=== PATIENT | female | born 1975 | race Caucasian/White ===

== ENCOUNTER 2016-10-14 12:37 | Emergency (ER) | payer OTHER ==
[2016-10-14] MEDS ORDERED: DIAZEPAM 5 MG/ML 2 ML SYRINGE IVP STA (13:42)
[2016-10-14] MEDS ORDERED: MORPHINE SULFATE 4 MG/ML SYRINGE IVP STA (13:42)
[2016-10-14] MEDS ORDERED: KETOROLAC 30 MG/ML 1 ML VIAL IVP STA (13:42)
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
[2016-10-14 15:17] VITALS: BP 124/75; PULSE 84; RESP 16; TEMP 98
== END 2016-10-14 15:37 | disposition home or self-care (01) ==
LOC: EC 12:37
DX: M62.830 Muscle spasm of back (principal); M79.7 Fibromyalgia; F17.200 Nicotine dependence, unspecified, uncomplicated; Z79.51 Long term (current) use of inhaled steroids; Z79.899 Other long term (current) drug therapy; Z88.0 Allergy status to penicillin; Z88.8 Allergy status to other drugs, medicaments and biological substances; V87.7XXA Person injured in collision between other specified motor vehicles (traffic), initial encounter; Y92.410 Unspecified street and highway as the place of occurrence of the external cause
CPT/HCPCS: 72125; 70450; 99284; 96374; 96375 ×2; J2270; J3360; J1885

== ENCOUNTER → 2017-01-16 | Outpatient (CLI) | payer OTHER ==
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
== END | disposition home or self-care (01) ==
LOC: RADMRIMAIN 17:44
PROVIDERS: ATTEND Family Medicine
DX: M46.96 Unspecified inflammatory spondylopathy, lumbar region (principal); M47.812 Spondylosis without myelopathy or radiculopathy, cervical region; M43.8X2 Other specified deforming dorsopathies, cervical region; G89.29 Other chronic pain
CPT/HCPCS: 72141; 72148

== ENCOUNTER → 2017-02-05 | Outpatient (CLI) | payer OTHER | LOC: CPPFTMAIN 12:03 | PROVIDERS: ATTEND Family Medicine | DX: J45.40 Moderate persistent asthma, uncomplicated (principal) | CPT/HCPCS: 94060; 94726; 94729 ==

== ENCOUNTER → 2017-03-07 | Outpatient (CLI) | payer OTHER ==
[2017-03-07 16:15] LABS: Blood Urea Nitrogen 9 mg/dL (7-17); Non-African American GFR(MDRD) >60 (>60 ml/min/1.73 sqM)
--- NOTE | 2017-03-07 19:20 | CT ---
EXAMINATION TYPE: CT abdomen pelvis w con DATE OF EXAM: 03/07/2017 REFERENCE: Previous study dated 10/21/2013 HISTORY: R14.0 Abdominal Bloating, K59.00 Intermittent cons HISTORY: Intermittent constipation with lower abdominal pain x3 weeks. CT DLP: 602 mGy Automated exposure control for dose reduction was used. TECHNIQUE: Helical acquisition through the abdomen and pelvis was obtained following the oral ingesti on of with Oral Contrast and following intravenous administration of 100 mL of Omnipaque 300. The ailin a was reformatted in axial, coronal and sagittal projections. FINDINGS: There is minimal dependent atelectasis in the dependent portion of the right lung. Visuali zed portions of the lungs are otherwise clear. There is no pleural or pericardial fluid. The heart is not enlarged. Within the abdomen, the liver is prominent measuring 20 cm. This is largely due to a Jair's lobe. T he spleen is normal in size. The gallbladder is contracted. There is a 1.8 x 3.1 cm right adrenal mass. This has enlarged slightly from previous. Left adrenal gl and appears normal. Both kidneys demonstrate function and appear morphologically normal. The pancreas appears normal. There is no significant retroperitoneal, iliac or inguinal adenopathy. The bladder is unremarkable. The uterus is not visualized. The ovaries appear unremarkable. There is mucosal thickening involving the descending colon and distal transverse colon. There is feca l elevation of the distal ileum. This suggests slow transit. There is a small amount of free fluid in the pelvis. No free air is seen. No bony destructive lesion is seen. IMPRESSION: 1. MUCOSAL THICKENING INVOLVING THE DISTAL TRANSVERSE AND DESCENDING COLONS. PLEASE CORRELATE FOR COL ITIS. 2. SACRALIZATION OF THE DISTAL ILEUM SUGGESTING STASIS. 3. HEPATOMEGALY. 4. ENLARGING, 1.8 X 3.1 CM, RIGHT ADRENAL MASS.
== END | disposition home or self-care (01) ==
LOC: RADCTMAIN 15:26
PROVIDERS: ATTEND Family Medicine
DX: K63.89 Other specified diseases of intestine (principal); R16.0 Hepatomegaly, not elsewhere classified; E27.8 Other specified disorders of adrenal gland
CPT/HCPCS: 82565; 84520; 74177; 36415; Q9967

== ENCOUNTER → 2017-04-24 | Outpatient (CLI) | payer OTHER ==
[2017-04-24 16:17] LABS: Basophils # (A) 0.1 k/uL (0-0.2); Basophils % (A) 1 %; Eosinophils # (A) 0.1 k/uL (0-0.7); Eosinophils % (A) 1 %; HCT 45.1 % (34.0-46.0); HGB 14.9 gm/dL (11.4-16.0); Lymphocytes # (A) 2.9 k/uL (1.0-4.8); Lymphocytes % (A) 29 %; MCH 31.5 pg (25.0-35.0); MCV 95.5 fL (80.0-100.0); Mean Platelet Volume 7.6; Monocytes # (A) 0.4 k/uL (0-1.0); Monocytes % (A) 4 %; Neutrophils # (A) 6.6 k/uL (1.3-7.7); Neutrophils % (A) 65 %; Platelet Count 281 k/uL (150-450); RBC 4.73 m/uL (3.80-5.40); RDW 12.4 % (11.5-15.5); WBC 10.2 k/uL (3.8-10.6)
[2017-04-25 01:34] LABS: Immunoglobulin E 82.1 IU/mL (0.00-114.00)
[2017-04-26 11:51] LABS: Alt. alternata IgE Class CLASS 0; Alternaria alternata IgE <0.35 kU/L (<0.35); Asperg. fumagatus IgE <0.35 kU/L (<0.35); Asperg. fumagatus IgE Class CLASS 0; Bermuda Grass IgE <0.35 kU/L (<0.35); Birch(Com.Silvr) IgE <0.35 kU/L (<0.35); Birch(Com.Silvr) IgE Class CLASS 0; Cat Epith & Dander IgE <0.35 kU/L (<0.35); Cat Epith & Dander IgE Class CLASS 0; Clad herbarum IgE <0.35 kU/L (<0.35); Cockroach IgE <0.35 kU/L (<0.35); Cottonwood IgE <0.35 kU/L (<0.35); Dermato. Pteronyssinus IgE <0.35 kU/L (<0.35); Dermato. farinae IgE <0.35 kU/L (<0.35); Dermato. farinae IgE Class CLASS 0; Dog Dander IgE <0.35 kU/L (<0.35); Elm IgE <0.35 kU/L (<0.35); Maple (Box Elder) IgE <0.35 kU/L (<0.35); Maple (Box Elder) IgE Class CLASS 0; Mountain Cedar IgE <0.35 kU/L (<0.35); Mountain Cedar IgE Class CLASS 0; Mouse Urine IgE Class CLASS 0; Nettle IgE <0.35 kU/L (<0.35); Nettle IgE Class CLASS 0; Oak IgE <0.35 kU/L (<0.35); Penicillium notatum IgE Class CLASS 0; Rough Marshelder IgE <0.35 kU/L (<0.35); Rough Marshelder IgE Class CLASS 0; Timothy Grass IgE <0.35 kU/L (<0.35); White Ash IgE Class CLASS 0
[2017-04-26 12:41] LABS: Alpha 1 Anti-Trypsin 161 mg/dL (90 - 200)
[2017-04-28 23:02] LABS: Alternaria Alternata IgG 4.7 mcg/mL (< 13.6); Aspergillus fumigatus IgG Not detected (Not detected); Cladosporium herbarium IgG 26.8 mcg/mL (< 14.7); Phoma ssp. IgG 5.6 mcg/mL (< 6.6); Saccaharomospora viridis Not detected (Not detected); Saccaharopoly. rectivirgula Not detected (Not detected)
== END | disposition home or self-care (01) ==
LOC: LABWHC1 15:47
PROVIDERS: ATTEND Internal Medicine
DX: J06.9 Acute upper respiratory infection, unspecified (principal)
CPT/HCPCS: 36415; 82103; 82104; 82785; 85025; 86001; 86003; 86606; 86609; 87502

== ENCOUNTER 2017-05-07 15:03 | Emergency (ER) | payer OTHER ==
[2017-05-07] MEDS ORDERED: KETOROLAC 30 MG/ML 1 ML VIAL IVP STA (16:10)
[2017-05-07] MEDS ORDERED: ONDANSETRON 4 MG/2 ML VIAL IVP STA (16:10)
[2017-05-07] MEDS ORDERED: MORPHINE SULFATE 5 MG/ML SYRINGE IVP STA (16:10)
[2017-05-07] MEDS ORDERED: SODIUM CHLORIDE 0.9% 1,000 ML IV ONE (16:10)
[2017-05-07] MEDS ORDERED: ACETAMINOPHEN TAB 325 MG TAB PO STA (16:11)
[2017-05-07] MEDS ORDERED: RX INFO: IV CONTRAST WAS GIVEN 1 EACH MISC MISCELLANE PRN (16:11)
[2017-05-07 16:20] LABS: Basophils # (A) 0.1 k/uL (0-0.2); Basophils % (A) 1 %; Eosinophils # (A) 0.2 k/uL (0-0.7); Eosinophils % (A) 2 %; HCT 39.4 % (34.0-46.0); HGB 13.2 gm/dL (11.4-16.0); Lymphocytes # (A) 2.2 k/uL (1.0-4.8); Lymphocytes % (A) 26 %; MCH 31.4 pg (25.0-35.0); MCHC 33.5 g/dL (31.0-37.0); MCV 93.7 fL (80.0-100.0); Mean Platelet Volume 7.6; Monocytes # (A) 0.3 k/uL (0-1.0); Monocytes % (A) 4 %; Neutrophils # (A) 5.5 k/uL (1.3-7.7); Neutrophils % (A) 66 %; Platelet Count 298 k/uL (150-450); RDW 12.5 % (11.5-15.5); WBC 8.3 k/uL (3.8-10.6)
[2017-05-07 16:23] LABS: Appearance,Urine Cloudy (Clear); Bacteria,Urine Many /hpf; Bilirubin,Urine Negative (Negative); Blood,Urine Negative (Negative); Budding Yeast,Urine Few /hpf; Color,Urine Yellow; Glucose,Urine (UA) Negative (Negative); Hyaline Casts,Urine 2 /lpf (0-2); Ketones,Urine Negative (Negative); Leukocyte Esterase,Urine Large (Negative); Nitrite,Urine Positive (Negative); PH, Urine 6.5 (5.0-8.0); Protein,Urine Negative (Negative); RBC,Urine 3 /hpf (0-5); Specific Gravity,Urine 1.009 (1.001-1.035); Squamous Epithelial Cell,Urine 11 /hpf (0-4); Urobilinogen,Urine <2.0 mg/dL (<2.0); WBC,Urine 13 /hpf (0-5)
[2017-05-07 16:33] LABS: ALT 49 U/L (9-52); AST 21 U/L (14-36); Albumin 3.8 g/dL (3.5-5.0); Alkaline Phosphatase 73 U/L (38-126); Anion Gap 9 mmol/L; Blood Urea Nitrogen 8 mg/dL (7-17); C Reactive Protein 5.9 mg/L (<10.0); Calcium 8.9 mg/dL (8.4-10.2); Carbon Dioxide 26 mmol/L (22-30); Chloride 105 mmol/L (98-107); Glucose 96 mg/dL (74-99); Lipase 43 U/L (23-300); Potassium 4.2 mmol/L (3.5-5.1); Sodium 140 mmol/L (137-145); Total Bilirubin 0.2 mg/dL (0.2-1.3); Total Protein 6.3 g/dL (6.3-8.2)
--- NOTE | 2017-05-07 16:33 | ED ---
Abdominal Pain HPI - General Chief Complaint: Abdominal Pain Stated Complaint: right side abdominal pain Time Seen by Provider: 05/07/17 15:12 Source: patient Mode of arrival: ambulatory Limitations: no limitations - History of Present Illness Initial Comments: 41-year-old female with past medical history of fibromyalgia, diverticulitis, hysterectomy, tubal ligation, and uterine ablation presented for evaluation of abdominal pain since Saturday. She states that it acutely worsened Saturday and is worsened by food. She describes it as sharpness with associated bloating and nausea. Pain is to her right abdomen and radiates around to her back. She discussed her current symptoms with Dr. Underwood who requested that she come to the ED for further treatment and evaluation. She also has an appointment with Dr. Danielle on 05/16. - Related Data Home Medications Medication Instructions Recorded Confirmed Albuterol Sulfate [Ventolin HFA] 2 puff INHALATION RT-Q6H PRN 09/06/13 05/07/17 Atorvastatin Calcium [Lipitor] 40 mg PO HS 05/07/17 05/07/17 Ergocalciferol (Vitamin D2) 50,000 unit PO FR 05/07/17 05/07/17 [Vitamin D2] FLUoxetine HCL [PROzac] 40 mg PO DAILY 05/07/17 05/07/17 Fluticasone/Salmeterol 1 puff INHALATION RT-BID 05/07/17 05/07/17 [Fluticasone-Salmeterol 55-14] Ibuprofen [Motrin] 800 mg PO BID 05/07/17 05/07/17 Montelukast [Singulair] 10 mg PO HS 05/07/17 05/07/17 Pregabalin [Lyrica] 100 mg PO BID 05/07/17 05/07/17 Varenicline [Chantix] 1 mg PO BID 05/07/17 05/07/17 busPIRone HCl [Buspar] 5 mg PO BID 05/07/17 05/07/17 Previous Rx's Medication Instructions Recorded HYDROcodone/APAP 5-325MG [[place] 1 - 2 tab PO Q6HR PRN #7 tab 05/07/17 5-325] Sulfamethox-Tmp 800-160Mg [Bactrim 1 tab PO Q12HR #27 tab 05/07/17 DS 800-160 mg] Allergies Allergy/AdvReac Type Severity Reaction Status Date / Time Penicillins Allergy Unknown Verified 05/07/17 15:43 Childhood terbinafine Allergy Rash/Hives Verified 05/07/17 15:43 Review of Systems ROS Statement: Those systems with pertinent positive or pertinent negative responses have been documented in the HPI. ROS Other: All systems not noted in ROS Statement are negative. Constitutional: Denies: fever, chills, night sweats Eyes: Denies: eye pain, eye discharge ENT: Denies: ear pain, throat pain Respiratory: Denies: cough, dyspnea Cardiovascular: Denies: chest pain, palpitations Endocrine: Denies: fatigue, polydipsia, polyuria Gastrointestinal: Reports: abdominal pain, nausea, other (Abdominal bloating). Denies: vomiting, diarrhea, constipation Genitourinary: Denies: urgency, dysuria, frequency, hematuria Musculoskeletal: Denies: back pain, arthralgia, myalgia Skin: Denies: rash, lesions Neurological: Denies: headache, weakness Psychiatric: Denies: anxiety, depression Hematological/Lymphatic: Denies: easy bleeding, easy bruising Past Medical History Past Medical History: Fibromyalgia, Musculoskeletal Disorder Additional Past Medical History / Comment(s): diverticulitis History of Any Multi-Drug Resistant Organisms: None Reported Past Surgical History: Hysterectomy, Orthopedic Surgery, Tubal Ligation, Uterine Ablation Past Psychological History: Anxiety, Depression, PTSD Smoking Status: Former smoker Past Alcohol Use History: Occasional Past Drug Use History: Marijuana - Past Family History Father Additional Family Medical History / Comment(s): dad bilpolar. kids ADHD General Exam Limitations: no limitations General appearance: alert, in distress (Mild) Head exam: Present: atraumatic, normocephalic, normal inspection Eye exam: Present: normal appearance, PERRL, EOMI. Absent: scleral icterus, conjunctival injection ENT exam: Present: normal exam, normal oropharynx, mucous membranes moist Neck exam: Present: normal inspection. Absent: tenderness, meningismus, lymphadenopathy Respiratory exam: Present: normal lung sounds bilaterally. Absent: respiratory distress, wheezes, rales, rhonchi, stridor Cardiovascular Exam: Present: normal rhythm, tachycardia GI/Abdominal exam: Present: soft, tenderness. Absent: distended, guarding, rebound, rigid Rectal exam: Present: deferred Extremities exam: Present: normal inspection, full ROM, normal capillary refill. Absent: tenderness, pedal edema, joint swelling, calf tenderness Back exam: Present: normal inspection Neurological exam: Present: alert, oriented X3, CN II-XII intact Psychiatric exam: Present: normal affect, normal mood Skin exam: Present: warm, dry, intact, normal color. Absent: rash Course Vital Signs 05/07/17 05/07/17 15:05 17:47 Temperature 100.8 F H 98.4 F Pulse Rate 113 H 85 Respiratory 18 16 Rate Blood Pressure 133/100 135/72 O2 Sat by Pulse 96 100 Oximetry Medical Decision Making - Medical Decision Making 41-year-old female with past medical history as noted above presented for evaluation of right-sided abdominal pain that radiates around to her right flank and right back. His ago examination she appears to be in mild distress and is holding her right side. Tenderness to palpation to the right side without peritoneal signs of guarding, rigidity, rebound. She states her abdomen is bloated from her baseline. She states similar symptoms in the past however she is unsure what the diagnosis was at that time. Concern for appendicitis versus colitis versus bowel traction and will obtain CT abdomen and pelvis, labs, and provide symptom management. Urinalysis significant for urinary tract infection. CT abdomen and pelvis shows a stable low density right adrenal mass consistent with benign etiology. No sign of acute abdomen and pelvis area there is some mild left-sided colonic diverticulosis without diverticulitis. There is no adverse change compared to old exam. Given her UTI with right-sided flank pain concern for pyelonephritis. The patient was given her first dose of Bactrim here in the ED. On reevaluation she had improvement in her symptoms pretty was informed of all results and through shared decision making it was determined that she be discharged with instructions to follow-up with primary care physician but to return to this facility if his symptoms should worsen or persist. The patient allergen understanding of all this information and agreed with the plan of care. - Lab Data Result diagrams: 05/07/17 16:00 05/07/17 16:00 Lab Results 05/07/17 05/07/17 05/07/17 Range/Units 16:00 16:00 16:00 WBC 8.3 (3.8-10.6) k/uL RBC 4.20 (3.80-5.40) m/uL Hgb 13.2 (11.4-16.0) gm/dL Hct 39.4 (34.0-46.0) % MCV 93.7 (80.0-100.0) fL MCH 31.4 (25.0-35.0) pg MCHC 33.5 (31.0-37.0) g/dL RDW 12.5 (11.5-15.5) % Plt Count 298 (150-450) k/uL Neutrophils % 66 % Lymphocytes % 26 % Monocytes % 4 % Eosinophils % 2 % Basophils % 1 % Neutrophils # 5.5 (1.3-7.7) k/uL Lymphocytes # 2.2 (1.0-4.8) k/uL Monocytes # 0.3 (0-1.0) k/uL Eosinophils # 0.2 (0-0.7) k/uL Basophils # 0.1 (0-0.2) k/uL Sodium 140 (137-145) mmol/L Potassium 4.2 (3.5-5.1) mmol/L Chloride 105 (98-107) mmol/L Carbon Dioxide 26 (22-30) mmol/L Anion Gap 9 mmol/L BUN 8 (7-17) mg/dL Creatinine 1.00 (0.52-1.04) mg/dL Est GFR (MDRD) Af Amer >60 (>60 ml/min/1.73 sqM) Est GFR (MDRD) Non-Af >60 (>60 ml/min/1.73 sqM) Glucose 96 (74-99) mg/dL Plasma Lactic Acid [place] 1.5 (0.7-2.0) mmol/L Calcium 8.9 (8.4-10.2) mg/dL Total Bilirubin 0.2 (0.2-1.3) mg/dL AST 21 (14-36) U/L ALT 49 (9-52) U/L Alkaline Phosphatase 73 (38-126) U/L C-Reactive Protein 5.9 (<10.0) mg/L Total Protein 6.3 (6.3-8.2) g/dL Albumin 3.8 (3.5-5.0) g/dL Lipase 43 (23-300) U/L Urine Color Urine Appearance (Clear) Urine pH (5.0-8.0) Ur Specific [place] (1.001-1.035) Urine Protein (Negative) Urine Glucose (UA) (Negative) Urine Ketones (Negative) Urine Blood (Negative) Urine Nitrite (Negative) Urine Bilirubin (Negative) Urine Urobilinogen (<2.0) mg/dL Ur Leukocyte Esterase (Negative) Urine RBC (0-5) /hpf Urine WBC (0-5) /hpf Ur Squamous Epith Cells (0-4) /hpf Urine Bacteria (None) /hpf Hyaline Casts (0-2) /lpf Urine Yeast (Budding) (None) /hpf 05/07/17 Range/Units 16:00 WBC (3.8-10.6) k/uL RBC (3.80-5.40) m/uL Hgb (11.4-16.0) gm/dL Hct (34.0-46.0) % MCV (80.0-100.0) fL MCH (25.0-35.0) pg MCHC (31.0-37.0) g/dL RDW (11.5-15.5) % Plt Count (150-450) k/uL Neutrophils % % Lymphocytes % % Monocytes % % Eosinophils % % Basophils % % Neutrophils # (1.3-7.7) k/uL Lymphocytes # (1.0-4.8) k/uL Monocytes # (0-1.0) k/uL Eosinophils # (0-0.7) k/uL Basophils # (0-0.2) k/uL Sodium (137-145) mmol/L Potassium (3.5-5.1) mmol/L Chloride (98-107) mmol/L Carbon Dioxide (22-30) mmol/L Anion Gap mmol/L BUN (7-17) mg/dL Creatinine (0.52-1.04) mg/dL Est GFR (MDRD) Af Amer (>60 ml/min/1.73 sqM) Est GFR (MDRD) Non-Af (>60 ml/min/1.73 sqM) Glucose (74-99) mg/dL Plasma Lactic Acid [place] (0.7-2.0) mmol/L Calcium (8.4-10.2) mg/dL Total Bilirubin (0.2-1.3) mg/dL AST (14-36) U/L ALT (9-52) U/L Alkaline Phosphatase (38-126) U/L C-Reactive Protein (<10.0) mg/L Total Protein (6.3-8.2) g/dL Albumin (3.5-5.0) g/dL Lipase (23-300) U/L Urine Color Yellow Urine Appearance Cloudy H (Clear) Urine pH 6.5 (5.0-8.0) Ur Specific [place] 1.009 (1.001-1.035) Urine Protein Negative (Negative) Urine Glucose (UA) Negative (Negative) Urine Ketones Negative (Negative) Urine Blood Negative (Negative) Urine Nitrite Positive H (Negative) Urine Bilirubin Negative (Negative) Urine Urobilinogen <2.0 (<2.0) mg/dL Ur Leukocyte Esterase Large H (Negative) Urine RBC 3 (0-5) /hpf Urine WBC 13 H (0-5) /hpf Ur Squamous Epith Cells 11 H (0-4) /hpf Urine Bacteria Many H (None) /hpf Hyaline Casts 2 (0-2) /lpf Urine Yeast (Budding) Few H (None) /hpf Disposition Clinical Impression: Pyelonephritis Disposition: HOME SELF-CARE Condition: Stable Instructions: Kidney Infection (ED) Additional Instructions: Please use medication as discussed. Please follow up with family doctor if symptoms have not improved over the next two days. Please return to the emergency room if your symptoms increase or worsen or for any other concerns. Prescriptions: HYDROcodone/APAP 5-325MG [[place] 5-325] 1 - 2 tab PO Q6HR PRN #7 tab PRN Reason: Analgesia Sulfamethox-Tmp 800-160Mg [Bactrim DS 800-160 mg] 1 tab PO Q12HR #27 tab Referrals: Mary Hernández MD [Primary Care Provider] - 1-2 days Time of Disposition: 18:09
--- NOTE | 2017-05-07 17:23 | CT ---
EXAMINATION TYPE: CT abdomen pelvis w con DATE OF EXAM: 05/07/2017 COMPARISON: 03/07/2017 and 10/21/2013 HISTORY: Right sided abdominal pain CT DLP: 1350 mGycm Automated exposure control for dose reduction was used. TECHNIQUE: Helical acquisition of images was performed from the lung bases through the pelvis. CONTRAST: Performed without Oral Contrast and with IV Contrast, patient injected with 100 mL of Omnipaque 300. FINDINGS: Lung bases are clear of consolidation. There is no pleural effusion. There is minimal subsegmental at electasis at the right posterior lung base. Liver spleen pancreas gallbladder appear normal. Bile ducts are not dilated. There is a oval-shaped 3 x 1.5 cm low-density mass on the right adrenal gland. The kidneys Show satisfactory contrast opacifi cation. There is no hydronephrosis. There is no retroperitoneal adenopathy. Appendix appears normal. There is no ascites. Bladder distends smoothly. There is no evidence of a pelvic mass. The bony struc tures appear intact. Bladder distends smoothly. I see no intestinal wall thickening. There are no dil ated loops. IMPRESSION: STABLE LOW-DENSITY RIGHT ADRENAL MASS CONSISTENT WITH BENIGN ETIOLOGY. NO SIGN OF ACUTE ABDOMEN AND P BASILIO. THERE IS SOME MILD LEFT-SIDED COLONIC DIVERTICULOSIS WITHOUT DIVERTICULITIS. NO ADVERSE CHANGE COMPARED TO OLD EXAM. There is new minimal subsegmental atelectasis at the right posterior lung base .
[2017-05-07 17:47] VITALS: BP 135/72; PULSE 85; RESP 16; TEMP 98.4
[2017-05-07] MEDS ORDERED: SULFAMETHOX-TMP 800-160MG 1 EACH TAB PO STA (18:07)
== END 2017-05-07 18:26 | disposition home or self-care (01) ==
LOC: EC 15:03
DX: N12 Tubulo-interstitial nephritis, not specified as acute or chronic (principal); K57.30 Diverticulosis of large intestine without perforation or abscess without bleeding; M79.7 Fibromyalgia; F41.9 Anxiety disorder, unspecified; F32.9 Major depressive disorder, single episode, unspecified; F43.10 Post-traumatic stress disorder, unspecified; Z87.891 Personal history of nicotine dependence; Z90.710 Acquired absence of both cervix and uterus; Z98.51 Tubal ligation status; Z98.890 Other specified postprocedural states; Z79.1 Long term (current) use of non-steroidal anti-inflammatories (NSAID); Z79.51 Long term (current) use of inhaled steroids; Z79.899 Other long term (current) drug therapy; Z88.0 Allergy status to penicillin; Z88.1 Allergy status to other antibiotic agents
CPT/HCPCS: 36415; 80053; 83605; 83690; 85025; 86140; 81001; 87086; 74177; 99284; 96374; 96375 ×2; 96361; J2405; J1885; Q9967; J2274; 87077; 87186

== ENCOUNTER 2017-07-28 13:17 | Emergency (ER) | payer OTHER ==
[2017-07-28] MEDS ORDERED: SODIUM CHLORIDE 0.9% 1,000 ML IV STA ×2 (13:48)
[2017-07-28] MEDS ORDERED: ACETAMINOPHEN TAB 500 MG TAB PO STA (13:49)
--- NOTE | 2017-07-28 13:53 | ED ---
General Adult HPI - General Chief complaint: Chest Pain Stated complaint: chest pain Time Seen by Provider: 07/28/17 13:39 Source: patient, RN notes reviewed Mode of arrival: wheelchair Limitations: no limitations - History of Present Illness Initial comments: Patient is a pleasant 41-year-old female presenting to the emergency Department with complaints of chest discomfort. Onset of symptoms was 3 or 4 days ago. Symptoms have been fairly steady. Patient does states symptoms are positional. It does hurt to take a deep breath. No cough. No dyspnea. No upper respiratory symptoms. Patient is denies fever symptoms at home. Patient does complain of headache. Patient states headache is fairly chronic for her however usually has not lasted this long. No history of previous chest discomfort. - Related Data Home Medications Medication Instructions Recorded Confirmed Albuterol Sulfate [Ventolin HFA] 2 puff INHALATION RT-Q6H PRN 09/06/13 05/07/17 Atorvastatin Calcium [Lipitor] 40 mg PO HS 05/07/17 05/07/17 Ergocalciferol (Vitamin D2) 50,000 unit PO FR 05/07/17 05/07/17 [Vitamin D2] FLUoxetine HCL [PROzac] 40 mg PO DAILY 05/07/17 05/07/17 Fluticasone/Salmeterol 1 puff INHALATION RT-BID 05/07/17 05/07/17 [Fluticasone-Salmeterol 55-14] Ibuprofen [Motrin] 800 mg PO BID 05/07/17 05/07/17 Montelukast [Singulair] 10 mg PO HS 05/07/17 05/07/17 Pregabalin [Lyrica] 100 mg PO BID 05/07/17 05/07/17 Varenicline [Chantix] 1 mg PO BID 05/07/17 05/07/17 busPIRone HCl [Buspar] 5 mg PO BID 05/07/17 05/07/17 Previous Rx's Medication Instructions Recorded HYDROcodone/APAP 5-325MG [[place] 1 - 2 tab PO Q6HR PRN #7 tab 05/07/17 5-325] Sulfamethox-Tmp 800-160Mg [Bactrim 1 tab PO Q12HR #27 tab 05/07/17 DS 800-160 mg] Allergies Allergy/AdvReac Type Severity Reaction Status Date / Time Penicillins Allergy Unknown Verified 07/28/17 13:21 Childhood sulfamethoxazole Allergy Unknown Verified 07/28/17 13:21 [From Bactrim] terbinafine Allergy Rash/Hives Verified 07/28/17 13:21 trimethoprim [From Bactrim] Allergy Unknown Verified 07/28/17 13:21 Review of Systems ROS Statement: Those systems with pertinent positive or pertinent negative responses have been documented in the HPI. ROS Other: All systems not noted in ROS Statement are negative. Constitutional: Denies: fever, chills Eyes: Denies: eye pain ENT: Denies: ear pain Respiratory: Denies: cough, dyspnea Cardiovascular: Reports: chest pain. Denies: palpitations Endocrine: Reports: fatigue Gastrointestinal: Denies: abdominal pain Genitourinary: Denies: dysuria Musculoskeletal: Denies: back pain Skin: Denies: rash Neurological: Reports: headache Past Medical History Past Medical History: Fibromyalgia, Musculoskeletal Disorder Additional Past Medical History / Comment(s): diverticulitis History of Any Multi-Drug Resistant Organisms: None Reported Past Surgical History: Hysterectomy, Orthopedic Surgery, Tubal Ligation, Uterine Ablation Past Psychological History: Anxiety, Depression, PTSD Smoking Status: Former smoker Past Alcohol Use History: Occasional Past Drug Use History: Marijuana - Past Family History Father Additional Family Medical History / Comment(s): dad bilpolar. kids ADHD General Exam Limitations: no limitations General appearance: alert, in no apparent distress Head exam: Present: atraumatic Eye exam: Present: normal appearance, PERRL ENT exam: Present: normal oropharynx Neck exam: Present: normal inspection. Absent: meningismus Respiratory exam: Present: normal lung sounds bilaterally, chest wall tenderness Cardiovascular Exam: Present: regular rate, normal rhythm Expanded Peripheral pulses: 2+: Radial (R), Radial (L), Posterior Tibialis (R), Posterior Tibialis (L) GI/Abdominal exam: Present: soft. Absent: distended, tenderness Extremities exam: Present: normal inspection. Absent: pedal edema, calf tenderness Neurological exam: Present: alert, CN II-XII intact. Absent: motor sensory deficit Expanded Motor strength exam: RUE: 5, LUE: 5, RLE: 5, LLE: 5 Psychiatric exam: Present: normal affect, normal mood Skin exam: Present: normal color Course Vital Signs 07/28/17 07/28/17 13:19 15:00 Temperature 99.2 F 98.8 F Pulse Rate 102 H 83 Respiratory 18 18 Rate Blood Pressure 139/72 134/86 O2 Sat by Pulse 96 96 Oximetry EKG Findings - EKG Comments: EKG Findings:: Normal sinus rhythm 85. HI 114. QRS 92. QT 386. QTc 459. Normal axis. Normal QRS. No acute ST change. Medical Decision Making - Medical Decision Making Patient reevaluated and unchanged. Patient family updated on results and plan. Case was discussed in detail with Dr. Wilson, who will admit for Dr. garcia - Lab Data Result diagrams: 07/28/17 13:40 07/28/17 13:40 Lab Results 07/28/17 07/28/17 07/28/17 Range/Units 13:40 13:40 13:40 WBC 6.9 (3.8-10.6) k/uL RBC 4.08 (3.80-5.40) m/uL Hgb 12.7 (11.4-16.0) gm/dL Hct 37.2 (34.0-46.0) % MCV 91.2 (80.0-100.0) fL MCH 31.2 (25.0-35.0) pg MCHC 34.2 (31.0-37.0) g/dL RDW 12.9 (11.5-15.5) % Plt Count 278 (150-450) k/uL Neutrophils % 63 % Lymphocytes % 30 % Monocytes % 5 % Eosinophils % 1 % Basophils % 0 % Neutrophils # 4.4 (1.3-7.7) k/uL Lymphocytes # 2.0 (1.0-4.8) k/uL Monocytes # 0.3 (0-1.0) k/uL Eosinophils # 0.1 (0-0.7) k/uL Basophils # 0.0 (0-0.2) k/uL PT (9.0-12.0) sec INR (<1.2) APTT (22.0-30.0) sec D-Dimer (<0.60) mg/L FEU Sodium 138 (137-145) mmol/L Potassium 3.9 (3.5-5.1) mmol/L Chloride 103 (98-107) mmol/L Carbon Dioxide 23 (22-30) mmol/L Anion Gap 12 mmol/L BUN 12 (7-17) mg/dL Creatinine 0.77 (0.52-1.04) mg/dL Est GFR (CKD-EPI)AfAm >90 (>60 ml/min/1.73 sqM) Est GFR (CKD-EPI)NonAf >90 (>60 ml/min/1.73 sqM) Glucose 101 H (74-99) mg/dL Plasma Lactic Acid Taurus (0.7-2.0) mmol/L Calcium 9.2 (8.4-10.2) mg/dL Magnesium 1.8 (1.6-2.3) mg/dL Total Bilirubin 0.2 (0.2-1.3) mg/dL AST 17 (14-36) U/L ALT 32 (9-52) U/L Alkaline Phosphatase 76 (38-126) U/L Total Creatine Kinase 63 (30-135) U/L CK-MB (CK-2) 0.3 (0.0-2.4) ng/mL CK-MB (CK-2) Rel Index 0.5 Troponin I <0.012 (0.000-0.034) ng/mL Total Protein 6.6 (6.3-8.2) g/dL Albumin 4.0 (3.5-5.0) g/dL Amylase 43 (30-110) U/L Lipase 68 (23-300) U/L Influenza Type A RNA (Not Detectd) Influenza Type B (PCR) (Not Detectd) 07/28/17 07/28/17 07/28/17 Range/Units 13:40 13:55 13:55 WBC (3.8-10.6) k/uL RBC (3.80-5.40) m/uL Hgb (11.4-16.0) gm/dL Hct (34.0-46.0) % MCV (80.0-100.0) fL MCH (25.0-35.0) pg MCHC (31.0-37.0) g/dL RDW (11.5-15.5) % Plt Count (150-450) k/uL Neutrophils % % Lymphocytes % % Monocytes % % Eosinophils % % Basophils % % Neutrophils # (1.3-7.7) k/uL Lymphocytes # (1.0-4.8) k/uL Monocytes # (0-1.0) k/uL Eosinophils # (0-0.7) k/uL Basophils # (0-0.2) k/uL PT 9.9 (9.0-12.0) sec INR 1.0 (<1.2) APTT 23.1 (22.0-30.0) sec D-Dimer 0.22 (<0.60) mg/L FEU Sodium (137-145) mmol/L Potassium (3.5-5.1) mmol/L Chloride (98-107) mmol/L Carbon Dioxide (22-30) mmol/L Anion Gap mmol/L BUN (7-17) mg/dL Creatinine (0.52-1.04) mg/dL Est GFR (CKD-EPI)AfAm (>60 ml/min/1.73 sqM) Est GFR (CKD-EPI)NonAf (>60 ml/min/1.73 sqM) Glucose (74-99) mg/dL Plasma Lactic Acid Taurus 0.8 (0.7-2.0) mmol/L Calcium (8.4-10.2) mg/dL Magnesium (1.6-2.3) mg/dL Total Bilirubin (0.2-1.3) mg/dL AST (14-36) U/L ALT (9-52) U/L Alkaline Phosphatase (38-126) U/L Total Creatine Kinase (30-135) U/L CK-MB (CK-2) (0.0-2.4) ng/mL CK-MB (CK-2) Rel Index Troponin I (0.000-0.034) ng/mL Total Protein (6.3-8.2) g/dL Albumin (3.5-5.0) g/dL Amylase (30-110) U/L Lipase (23-300) U/L Influenza Type A RNA Not Detected (Not Detectd) Influenza Type B (PCR) Not Detected (Not Detectd) - Radiology Data Radiology results: image reviewed (Chest x-ray shows no acute process) Disposition Clinical Impression: Chest pain Disposition: ADMITTED IP TO THIS [facility] Referrals: Mary Hernández MD [Primary Care Provider] - 1-2 days Decision Time: 15:32
[2017-07-28 13:58] LABS: Basophils % (A) 0 %; Eosinophils # (A) 0.1 k/uL (0-0.7); Eosinophils % (A) 1 %; HCT 37.2 % (34.0-46.0); HGB 12.7 gm/dL (11.4-16.0); Lymphocytes % (A) 30 %; MCH 31.2 pg (25.0-35.0); MCHC 34.2 g/dL (31.0-37.0); MCV 91.2 fL (80.0-100.0); Mean Platelet Volume 7.6; Monocytes # (A) 0.3 k/uL (0-1.0); Monocytes % (A) 5 %; Neutrophils # (A) 4.4 k/uL (1.3-7.7); Neutrophils % (A) 63 %; Platelet Count 278 k/uL (150-450); RBC 4.08 m/uL (3.80-5.40); RDW 12.9 % (11.5-15.5); WBC 6.9 k/uL (3.8-10.6)
[2017-07-28 14:06] LABS: ALT 32 U/L (9-52); AST 17 U/L (14-36); Alkaline Phosphatase 76 U/L (38-126); Amylase 43 U/L (30-110); Anion Gap 12 mmol/L; Blood Urea Nitrogen 12 mg/dL (7-17); Calcium 9.2 mg/dL (8.4-10.2); Carbon Dioxide 23 mmol/L (22-30); Chloride 103 mmol/L (98-107); Glucose 101 mg/dL (74-99); Lipase 68 U/L (23-300); Magnesium 1.8 mg/dL (1.6-2.3); Potassium 3.9 mmol/L (3.5-5.1); Sodium 138 mmol/L (137-145); Total Bilirubin 0.2 mg/dL (0.2-1.3); Total Protein 6.6 g/dL (6.3-8.2)
[2017-07-28 14:11] LABS: D-Dimer 0.22 mg/L FEU (<0.60); Partial Thromboplastin Time 23.1 sec (22.0-30.0); Prothrombin Time 9.9 sec (9.0-12.0)
--- NOTE | 2017-07-28 14:16 | XR ---
EXAMINATION TYPE: XR chest 2V DATE OF EXAM: 07/28/2017 COMPARISON: NONE INDICATION: Chest pain deep breathing headache TECHNIQUE: Frontal and lateral views of the chest are obtained. FINDINGS: The heart size is normal. The pulmonary vasculature is normal. The lungs are clear. IMPRESSION: 1. No acute pulmonary process.
[2017-07-28 14:17] LABS: Creatine Kinase 63 U/L (30-135)
[2017-07-28 14:30] LABS: Creatine Kinase MB 0.3 ng/mL (0.0-2.4); Troponin I <0.012 ng/mL (0.000-0.034)
[2017-07-28] MEDS ORDERED: MORPHINE SULFATE 4MG/4ML SYRG IVP STA (15:31)
[2017-07-28] MEDS ORDERED: NITROGLYCERIN SL TABS 0.4 MG TAB SUBLINGUAL PRN (15:32)
[2017-07-28] MEDS ORDERED: ASPIRIN 81 MG PO STA (15:32)
[2017-07-28] MEDS ORDERED: KETOROLAC 30 MG/ML 1 ML VIAL IVP PRN (17:43)
[2017-07-28] MEDS ORDERED: NITROGLYCERIN OINT 1 INCH/GM PACKET TOPICAL SCH (18:00)
--- NOTE | 2017-07-28 18:16 | P.HPIM ---
History of Present Illness 41-year-old female presenting to the emergency Department with complaints of chest discomfort. Onset of symptoms was 3 or 4 days ago. Symptoms have been fairly steady. Patient does states symptoms are positional. No cough. No dyspnea. No upper respiratory symptoms. Patient is denies fever symptoms at home. Patient does complain of headache. Patient states headache is fairly chronic for her however usually has not lasted this long. No history of previous chest discomfort. Patient chest pain is musculoskeletal reproducible about a 9/10 in severity patient is complaining of severe headache because of the Nitropatch received. Patient had one set of troponin that was negative, patient's EKG did not show any significant ST-T wave changes. We'll repeat another set of troponin and EKG if that's negative patient will be discharged to follow up with her pain management physician. Patient pain starts in the neck radiates to the front of the chest patient has some tenderness in the paraspinal area in the cervical and thoracic area and is significantly reproducible chest pain in the parasternal area. Patient's d-dimer is negative patient chest pain is nonpleuritic in nature not associated with food mostly increases with chest wall movement. Denied any diaphoresis associated that Review of Systems REVIEW OF SYSTEMS: CONSTITUTIONAL: No fever, no malaise, no fatigue. HEENT: No recent visual problems or hearing problems. Denied any sore throat. CARDIOVASCULAR: No orthopnea, PND, no palpitations, no syncope. PULMONARY: No shortness of breath, no cough, no hemoptysis. GASTROINTESTINAL: No diarrhea, no nausea, no vomiting, no abdominal pain. Normoactive bowel sounds. NEUROLOGICAL: No headaches, no weakness, no numbness. HEMATOLOGICAL: Denies any bleeding or petechiae. GENITOURINARY: Denies any burning micturition, frequency, or urgency. MUSCULOSKELETAL/RHEUMATOLOGICAL: Denies any joint pain, swelling, or any muscle pain. Chest pain as mentioned above ENDOCRINE: Denies any polyuria or polydipsia. The rest of the 14-point review of systems is negative. Past Medical History Past Medical History: Fibromyalgia, Musculoskeletal Disorder Additional Past Medical History / Comment(s): diverticulitis History of Any Multi-Drug Resistant Organisms: None Reported Past Surgical History: Hysterectomy, Orthopedic Surgery, Tubal Ligation, Uterine Ablation Past Psychological History: Anxiety, Depression, PTSD Smoking Status: Former smoker Past Alcohol Use History: Occasional Past Drug Use History: Marijuana - Past Family History Father Additional Family Medical History / Comment(s): dad bilpolar. kids ADHD Medications and Allergies Home Medications Medication Instructions Recorded Confirmed Type Albuterol Sulfate [Ventolin HFA] 2 puff INHALATION RT-Q6H PRN 09/06/13 07/28/17 History Atorvastatin Calcium [Lipitor] 40 mg PO HS 05/07/17 07/28/17 History FLUoxetine HCL [PROzac] 40 mg PO DAILY 05/07/17 07/28/17 History Fluticasone/Salmeterol 1 puff INHALATION RT-BID 05/07/17 07/28/17 History [Fluticasone-Salmeterol 55-14] Montelukast [Singulair] 10 mg PO HS 05/07/17 07/28/17 History Pregabalin [Lyrica] 100 mg PO BID 05/07/17 07/28/17 History Varenicline [Chantix] 1 mg PO BID 05/07/17 07/28/17 History busPIRone HCl [Buspar] 5 mg PO BID 05/07/17 07/28/17 History Dicyclomine [Bentyl] 20 mg PO QID PRN 07/28/17 07/28/17 History Ibuprofen [Motrin] 600 mg PO TID PRN 07/28/17 07/28/17 History Omeprazole 40 mg PO DAILY 07/28/17 07/28/17 History Allergies Allergy/AdvReac Type Severity Reaction Status Date / Time Penicillins Allergy Unknown Verified 07/28/17 15:48 Childhood sulfamethoxazole Allergy Unknown Verified 07/28/17 15:48 [From Bactrim] terbinafine Allergy Rash/Hives Verified 07/28/17 15:48 trimethoprim [From Bactrim] Allergy Unknown Verified 07/28/17 15:48 Physical Exam Vitals: Vital Signs Temp Pulse Resp BP Pulse Ox 07/28/17 18:00 83 20 127/75 98 07/28/17 16:00 85 20 126/72 98 07/28/17 15:00 98.8 F 83 18 134/86 96 07/28/17 13:19 99.2 F 102 H 18 139/72 96 Intake and Output 07/28/17 07/28/17 07/28/17 06:59 14:59 22:59 Other: Weight 77.111 kg PHYSICAL EXAMINATION: GENERAL: The patient is alert and oriented x3, not in any acute distress. Well developed, well nourished. HEENT: Pupils are round and equally reacting to light. EOMI. No scleral icterus. No conjunctival pallor. Normocephalic, atraumatic. No pharyngeal erythema. No thyromegaly. CARDIOVASCULAR: S1 and S2 present. No murmurs, rubs, or gallops. Reproducible chest pain PULMONARY: Chest is clear to auscultation, no wheezing or crackles. ABDOMEN: Soft, nontender, nondistended, normoactive bowel sounds. No palpable organomegaly. MUSCULOSKELETAL: No joint swelling or deformity. EXTREMITIES: No cyanosis, clubbing, or pedal edema. NEUROLOGICAL: Gross neurological examination did not reveal any focal deficits. Paraspinal tenderness SKIN: No rashes. Results CBC & Chem 7: 07/28/17 13:40 07/28/17 13:40 Labs: Abnormal Lab Results - Last 24 Hours (Table) 07/28/17 Range/Units 13:40 Glucose 101 H (74-99) mg/dL Assessment and Plan Plan: -Chest pain we'll rule out acute causes syndromes. If patient negative troponin and EKG are negative patient will be discharged patient has musculoskeletal chest pain the patient's headache is secondary to nitro patch. 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 Patient has an appointment tomorrow morning. Patient did get outpatient stress test. 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
[2017-07-28 20:11] LABS: Creatine Kinase 60 U/L (30-135)
[2017-07-28 20:16] LABS: Creatine Kinase MB 0.4 ng/mL (0.0-2.4)
[2017-07-28 20:31] LABS: Troponin I <0.012 ng/mL (0.000-0.034)
[2017-07-28 20:58] VITALS: BP 135/82; PULSE 88; RESP 18; TEMP 97.8
[2017-07-29] MEDS ORDERED: ASPIRIN 325 MG TAB PO SCH (09:00)
== END 2017-07-28 20:50 | disposition other institution (70) ==
LOC: EC 13:17 → 3OBS 15:32 → UNDOADMOB 15:32 → EC 20:50
DX: R07.89 Other chest pain (principal); R51 Headache; R53.83 Other fatigue; F32.9 Major depressive disorder, single episode, unspecified; F41.9 Anxiety disorder, unspecified; F43.10 Post-traumatic stress disorder, unspecified; M79.7 Fibromyalgia; Z88.0 Allergy status to penicillin; Z88.1 Allergy status to other antibiotic agents; Z88.2 Allergy status to sulfonamides; Z88.8 Allergy status to other drugs, medicaments and biological substances; Z79.1 Long term (current) use of non-steroidal anti-inflammatories (NSAID); Z79.51 Long term (current) use of inhaled steroids; Z79.899 Other long term (current) drug therapy; Z87.891 Personal history of nicotine dependence
CPT/HCPCS: 99285; 96374; 96375; 96361 ×7; 36415; 93005; 85379; 80053; 82150; 82550; 82553; 83605; 83690; 83735; 84484; 85025; 85610; 85730; 87040; 87502; 71046; J1885; J2270

== ENCOUNTER → 2017-08-02 | Outpatient (CLI) | payer OTHER ==
[2017-08-02 14:35] LABS: Basophils % (A) 0 %; Eosinophils # (A) 0.1 k/uL (0-0.7); Eosinophils % (A) 2 %; HCT 36.7 % (34.0-46.0); HGB 12.3 gm/dL (11.4-16.0); Lymphocytes # (A) 2.5 k/uL (1.0-4.8); Lymphocytes % (A) 36 %; MCH 31.2 pg (25.0-35.0); MCHC 33.4 g/dL (31.0-37.0); MCV 93.3 fL (80.0-100.0); Mean Platelet Volume 7.8; Monocytes # (A) 0.4 k/uL (0-1.0); Monocytes % (A) 5 %; Neutrophils # (A) 3.8 k/uL (1.3-7.7); Neutrophils % (A) 56 %; Platelet Count 275 k/uL (150-450); RBC 3.93 m/uL (3.80-5.40); RDW 13.1 % (11.5-15.5); WBC 6.9 k/uL (3.8-10.6)
[2017-08-02 14:58] LABS: ALT 22 U/L (9-52); AST 17 U/L (14-36); Albumin 3.9 g/dL (3.5-5.0); Alkaline Phosphatase 75 U/L (38-126); Anion Gap 13 mmol/L; Blood Urea Nitrogen 13 mg/dL (7-17); C Reactive Protein <5.0 mg/L (<10.0); Calcium 8.8 mg/dL (8.4-10.2); Carbon Dioxide 23 mmol/L (22-30); Chloride 105 mmol/L (98-107); Glucose 94 mg/dL (74-99); Potassium 4.6 mmol/L (3.5-5.1); Sodium 141 mmol/L (137-145); Total Bilirubin 0.1 mg/dL (0.2-1.3); Total Protein 6.5 g/dL (6.3-8.2); Uric Acid 5.4 mg/dL (3.7-7.4)
[2017-08-02 15:11] LABS: T4, Free (Free Thyroxine) 0.68 ng/dL (0.78-2.19)
[2017-08-02 17:09] LABS: Erythrocyte Sedimentation Rate 9 mm/hr (0-20)
[2017-08-02 19:29] LABS: Vitamin D 25 Hydroxy 23.2 ng/mL (30.0-100.0)
[2017-08-02 19:39] LABS: Rheumatoid Factor <4 IU/mL (0-15)
== END | disposition home or self-care (01) ==
LOC: LABWHC1 13:36
PROVIDERS: ATTEND Physician Assistant
DX: M13.0 Polyarthritis, unspecified (principal); E27.9 Disorder of adrenal gland, unspecified; E55.9 Vitamin D deficiency, unspecified; M10.9 Gout, unspecified
CPT/HCPCS: 36415; 80053; 82306; 84439; 84443; 84481; 84550; 85025; 85652; 86038; 86140; 86431

== ENCOUNTER → 2017-08-02 | Outpatient (CLI) | payer OTHER ==
--- NOTE | 2017-08-02 15:01 | US ---
EXAMINATION TYPE: US carotid duplex BILAT DATE OF EXAM: 08/02/2017 COMPARISON: NONE CLINICAL HISTORY: SYNCOPE R55. No HTN, high cholesterol, headaches, dizzy, forgetful EXAM MEASUREMENTS: RIGHT: Peak Systolic Velocity (PSV) cm/sec ----- Right CCA: 94.2 ----- Right ICA: 81.4 ----- Right ECA: 71.5 ICA/CCA ratio: 0.9 RIGHT: End Diastole cm/sec ----- Right CCA: 34.9 ----- Right ICA: 32.9 ----- Right ECA: 15.3 LEFT: Peak Systolic Velocity (PSV) cm/sec ----- Left CCA: 107.0 ----- Left ICA: 84.4 ----- Left ECA: 55.3 ICA/CCA ratio: 0.8 LEFT: End Diastole cm/sec ----- Left CCA: 37.1 ----- Left ICA: 44.7 ----- Left ECA: 12.5 VERTEBRALS (direction of flow): Right Vertebral: Antegrade Left Vertebral: Antegrade Rhythm: No significant stenosis, elevated velocities, plaque or wall thickening seen IMPRESSION: No evidence for hemodynamically significant stenosis. Criteria for Assigning % of Stenosis / Diameter reduction (Estimation based on the indirect measurements of the internal carotid artery velocities (ICA PSV). 1. Normal (no stenosis)=ICA PSV < 125 cm/s: ratio < 2.0: ICA EDV<40 cm/s. 2. Less than 50% stenosis=ICA PSV < 125 cm/s: ratio < 2.0: ICA EDV<40 cm/s. 3. 50 to 69% stenosis=ICA PSV of 125 to 230 cm/s: ration 2.0 ? 4.0: ICA EDV 40-100 cm/s. 4. Greater than 70% stenosis to near occlusion= ICA PSV > 230 cm/s: ratio > 4.0: ICA EDV > 100 cm/s. 5. Near occlusion= ICA PSV velocities may be low or undetectable: variable ratio and ICA EDV. 6. Total occlusion=unable to detect flow.
== END | disposition home or self-care (01) ==
LOC: RADUSWWP 13:45
PROVIDERS: ATTEND Psychiatry & Neurology Neurology
DX: R55 Syncope and collapse (principal)
CPT/HCPCS: 93880

== ENCOUNTER → 2017-08-12 | Outpatient (CLI) | payer OTHER ==
--- NOTE | 2017-08-13 00:19 | MR ---
EXAMINATION TYPE: MR angio head wo con DATE OF EXAM: 08/12/2017 COMPARISON: NONE HISTORY: Migraines, dizziness, lt sided hearing loss TECHNIQUE: Time of flight images focusing on the [place] were performed without contrast. FINDINGS: There is arterial flow in the anterior middle and posterior cerebral arteries. There is art erial flow in the vertebrobasilar artery system. There is no mass effect. There is no evidence of spa sm. I see no aneurysm or neovascularity. There is a diminutive right side posterior communicating art mariah. I see no evidence of focal stenosis. There is arterial flow in the distal internal carotid arter ies bilaterally. IMPRESSION: Normal MR angiogram of the brain.
--- NOTE | 2017-08-13 00:29 | MR ---
EXAMINATION TYPE: MR brain wo con DATE OF EXAM: 08/12/2017 COMPARISON: 11/10/2013 HISTORY: Migraines, dizziness, lt sided hearing loss Standard multiplanar, multisequence MRI departmental protocol Multiplanar, multisequence images of the brain were acquired. Diffusion weighted imaging was performe d. FINDINGS: Ventricles and sulci appear normal. There is no mass effect nor midline shift. There is no sign of intracranial hemorrhage. Brainstem appears intact. Sella turcica appears normal. There are sc attered tiny white matter high signal foci on the FLAIR images at the regalado-white matter junction of b oth cerebral hemispheres. Total numbers less than 10 and these measure only 2 to 3 mm.. There is no s ign of cerebral edema. Corpus callosum appears normal. IMPRESSION: Tiny white matter high signal foci are subcortical and probably due to microvascular isch emia. There is no change compared to old exam. No evidence of any new lesions. I do not see a cause f or left-sided hearing loss.
== END ==
LOC: RADMRIMAIN 19:51
PROVIDERS: ATTEND Psychiatry & Neurology Neurology
DX: R90.82 White matter disease, unspecified (principal); R51 Headache; R42 Dizziness and giddiness
CPT/HCPCS: 70544; 70551

== ENCOUNTER → 2017-09-06 | Outpatient (CLI) | payer OTHER ==
[2017-09-10 09:59] LABS: Cotinine <2.0 ng/mL (<2.0); Nicotine <2.0 ng/mL (<2.0)
== END ==
LOC: LABWHC1 12:56
PROVIDERS: ATTEND Internal Medicine
DX: F17.200 Nicotine dependence, unspecified, uncomplicated (principal)
CPT/HCPCS: 36415; G0480; 80323

== ENCOUNTER → 2017-09-17 | Outpatient (CLI) | payer OTHER ==
--- NOTE | 2017-09-17 15:31 | CT ---
EXAMINATION TYPE: CT abdomen wo/w con DATE OF EXAM: 09/17/2017 HISTORY: Known adrenal mass CT DLP: 907mGycm Automated Exposure Control for Dose Reduction was Utilized. CONTRAST: CT scan of the abdomen is performed without oral and without and with IV Contrast, patient injected w ith 100 mL of Isovue 300. Adrenal gland protocol. COMPARISON: CT abdomen and pelvis May 07, 2017 and older studies FINDINGS: LUNG BASES: Posterior right basilar linear atelectasis is present. LIVER/GB: There are few low dense lesions scattered throughout the liver, largest measures 1.3 cm jus t posterior to the portal vein axial image 36, this is unchanged from September 07, 2013 CT in size and hannah s presumed benign. PANCREAS: No significant abnormality is seen. SPLEEN: No significant abnormality is seen. ADRENALS: There is persistent right adrenal mass measuring 2.5 x 1.6 cm axial image 22 series 3. Mass is not significantly changed in size from oldest CT August 19, 2013. Hounsfield units average -5 on noncontrast study. Postcontrast shows heterogeneous enhancement to 42 Hounsfield units with delayed w ashout to 14 Hounsfield units. Findings are greater than 50% washout in Hounsfield units less than 10 on noncontrast study as well as stability since 2013 are consistent with benign lipid rich adenoma. Left adrenal gland is felt within normal limits. KIDNEYS: No significant abnormality is seen. BOWEL: Normal-appearing appendix from cecum is seen. A few diverticula are seen in the left and visua lized sigmoid colon. LYMPH NODES: No greater than 1cm abdominal lymph nodes are appreciated. OSSEOUS STRUCTURES: No significant abnormality is seen. OTHER: No significant additional abnormality is seen. IMPRESSION: Stable right adrenal mass with imaging characteristics consistent with benign lipid rich adenoma.
== END | disposition home or self-care (01) ==
LOC: RADCTMAIN 12:48
PROVIDERS: ATTEND Internal Medicine Hematology & Oncology
DX: E27.8 Other specified disorders of adrenal gland (principal); R10.9 Unspecified abdominal pain
CPT/HCPCS: 74170; Q9967

== ENCOUNTER 2018-06-23 10:02 | Day surgery (SDC) | payer OTHER ==
[2018-06-19 11:00] VITALS: BMI 25.0
[~2018-06-23 10:02] MED LIST: LACTATED RINGERS 1,000 ML IV SCH; LIDOCAINE 1% 20 ML VIAL (10MG/ML) FOR IV START INTRADERMA PRN
[2018-06-23 10:30] VITALS: RESP 16; TEMP 97.4
[2018-06-23] MEDS ORDERED: LIDOCAINE 1% 20 ML VIAL (10MG/ML) FOR IV START INTRADERMA ONE (10:34)
[2018-06-23] MEDS ORDERED: PROPOFOL 10 MG/ML 20 ML VIAL IV ONE (11:31)
--- NOTE | 2018-06-23 12:16 | P.PCN ---
Date of Procedure: 06/23/18 Procedure(s) Performed: Procedure: 1. Esophagogastroduodenoscopy and biopsy. 2. Colonoscopy and biopsy. Preoperative diagnosis: Chronic reflux symptoms and change in bowel habits. Postoperative diagnosis: 1. Hiatal hernia with no evidence of esophagitis or complicated reflux disease. 2. Mild antral gastritis. 3. Biopsies obtained from the duodenum, antrum and esophagus. 4. Sigmoid diverticulosis with no evidence of acute diverticulitis or strictures. 5. No polyps or tumors. 6. Biopsies obtained from the right colon. Preparation: HalfLytely prep. Sedation: Was provided by anesthesia. Brief clinical history: The patient is a 42-year-old female who was evaluated in the office regarding chronic reflux and change in bowel habits. She had a prior colonoscopy but no prior upper endoscopy. This evaluation is to assess for complicated reflux disease, neoplasia or other pathology. Procedure: With the patient on her left lateral decubitus position and after informed consent and adequate sedation, I passed the Olympus-GIF H190 video upper endoscope through the cricopharyngeus down the esophagus. GE junction was around 38 cm from the incisors and there was a small sliding hiatal hernia but no obvious esophagitis or complicated reflux disease. The endoscope was then passed into the stomach which was insufflated with air and inspected in detail including the retroflex view in the cardia. There was some mottling and erythema in the antrum but no ulcers or erosions. Pyloric channel, duodenal bulb, post bulbar area and descending duodenum appeared within normal limits. I obtained multiple biopsies from the duodenum, antrum and esophagus then the endoscope was withdrawn and I proceeded to perform the colonoscopy. Perianal area did not show any fissures or fistulas. There were no masses felt on digital rectal examination. The Olympus CFH 190L video colonoscope was then inserted in the rectum in the usual fashion and advanced to the cecum. There were several diverticular orifices seen scattered in the sigmoid but I saw no evidence of acute diverticulitis or strictures. The mucosa appeared healthy. No polyps or tumors were seen. Because of her bowel changes, I obtained biopsies from the right colon then the endoscope was withdrawn. The patient tolerated the procedure well. Plan: The patient was reassured. Will await biopsy results and make further plans. I will keep you updated on her progress.
[2018-06-23 12:46] VITALS: BP 120/82; PULSE 80
== END 2018-06-23 12:58 | disposition home or self-care (01) ==
LOC: ORWHC2ENDO 10:02
DX: K21.9 Gastro-esophageal reflux disease without esophagitis (principal); R19.4 Change in bowel habit; K29.50 Unspecified chronic gastritis without bleeding; K44.9 Diaphragmatic hernia without obstruction or gangrene; K57.30 Diverticulosis of large intestine without perforation or abscess without bleeding; J45.909 Unspecified asthma, uncomplicated; M79.7 Fibromyalgia; F17.200 Nicotine dependence, unspecified, uncomplicated; Z88.1 Allergy status to other antibiotic agents; Z88.0 Allergy status to penicillin; Z79.899 Other long term (current) drug therapy
CPT/HCPCS: 88305; 88312; 45380; 43239; J2704

== ENCOUNTER → 2018-11-26 | Outpatient (CLI) | payer OTHER ==
[2018-11-26 19:28] LABS: African American GFR (CKD) 91.4 (60.0-200.0); BUN/Creat Ratio 8.89 Ratio (12.00-20.00); Calcium 9.1 mg/dL (8.7-10.3); Potassium 4.5 mmol/L (3.5-5.5); Vitamin D 25 Hydroxy 31.5 ng/mL (30.0-100.0)
== END | disposition home or self-care (01) ==
LOC: LABWHC1 13:17
PROVIDERS: ATTEND Nurse Practitioner Family
DX: E55.9 Vitamin D deficiency, unspecified (principal); E27.9 Disorder of adrenal gland, unspecified
CPT/HCPCS: 36415; 80048; 82306; 83970

== ENCOUNTER → 2018-12-01 | Outpatient (CLI) | payer OTHER ==
--- NOTE | 2018-12-02 10:22 | MM ---
Reason for exam: screening (asymptomatic). Last mammogram was performed 1 year and 8 months ago. History: Family history of breast cancer in maternal aunt and breast cancer in maternal cousin. Physical Findings: A clinical breast exam by your physician is recommended on an annual basis and results should be correlated with mammographic findings. MG Screening Mammo w CAD Bilateral CC and MLO view(s) were taken. Prior study comparison: March 28, 2017, bilateral MG screening mammo w CAD. June 09, 2012, mammogram, performed at [facility]. The breast tissue is heterogeneously dense. This may lower the sensitivity of mammography. No suspicious abnormality. No significant changes when compared with prior studies. ASSESSMENT: Negative, BI-RAD 1 RECOMMENDATION: Routine screening mammogram of both breasts in 1 year.
== END | disposition home or self-care (01) ==
LOC: RADMAMWWP 12:07
PROVIDERS: ATTEND Family Medicine
DX: Z12.31 Encounter for screening mammogram for malignant neoplasm of breast (principal)
CPT/HCPCS: 77067

== ENCOUNTER → 2018-12-04 | Outpatient (CLI) | payer OTHER ==
[2018-12-04 10:58] LABS: INR 0.9 (<1.2)
[2018-12-04 10:59] LABS: Partial Thromboplastin Time 25.5 sec (22.0-30.0); Prothrombin Time 9.6 sec (9.0-12.0)
[2018-12-04 11:06] LABS: Basophils # (A) 0.1 k/uL (0-0.2); Basophils % (A) 1 %; Eosinophils # (A) 0.2 k/uL (0-0.7); Eosinophils % (A) 2 %; HCT 42.7 % (34.0-46.0); Lymphocytes # (A) 2.6 k/uL (1.0-4.8); Lymphocytes % (A) 32 %; MCHC 32.8 g/dL (31.0-37.0); MCV 94.5 fL (80.0-100.0); Mean Platelet Volume 8.2; Monocytes # (A) 0.4 k/uL (0-1.0); Monocytes % (A) 5 %; Neutrophils # (A) 4.9 k/uL (1.3-7.7); Neutrophils % (A) 59 %; Platelet Count 264 k/uL (150-450); RBC 4.52 m/uL (3.80-5.40); RDW 14.1 % (11.5-15.5); WBC 8.3 k/uL (3.8-10.6)
[2018-12-04 11:12] LABS: Appearance,Urine Clear (Clear); Bacteria,Urine Occasional /hpf; Bilirubin,Urine Negative (Negative); Blood,Urine Negative (Negative); Color,Urine Light Yellow; Glucose,Urine (UA) Negative (Negative); Ketones,Urine Negative (Negative); Leukocyte Esterase,Urine Moderate (Negative); Nitrite,Urine Negative (Negative); PH, Urine 6.5 (5.0-8.0); Protein,Urine Negative (Negative); RBC,Urine 1 /hpf (0-5); Specific Gravity,Urine 1.004 (1.001-1.035); Squamous Epithelial Cell,Urine 3 /hpf (0-4); Urobilinogen,Urine <2.0 mg/dL (<2.0); WBC,Urine 2 /hpf (0-5)
[2018-12-04 16:04] LABS: African American GFR (CKD) 105.4 (60.0-200.0); Albumin 4.1 g/dL (3.80-4.90); Albumin/Globulin Ratio 2.05 (1.60-3.17); Anion Gap 5.5 mmol/L (4.00-12.00); Calcium 8.6 mg/dL (8.7-10.3); Carbon Dioxide 27.5 mmol/L (21.6-31.8); Potassium 4.3 mmol/L (3.5-5.5); Total Bilirubin 0.2 mg/dL (0.3-1.2); Total Protein 6.1 g/dL (6.2-8.2)
== END | disposition home or self-care (01) ==
LOC: LABWHC1 09:58
PROVIDERS: ATTEND Neurological Surgery
DX: Z01.812 Encounter for preprocedural laboratory examination (principal); M50.121 Cervical disc disorder at C4-C5 level with radiculopathy
CPT/HCPCS: 36415; 80053; 81001; 85025; 85610; 85730; 87070; 87086

== ENCOUNTER → 2019-02-07 | Outpatient (CLI) | payer OTHER ==
--- NOTE | 2019-02-07 17:23 | XR ---
EXAMINATION TYPE: XR cervical spine w flex/ext DATE OF EXAM: 02/07/2019 COMPARISON: 06/12/2013 HISTORY: Fusion surgery TECHNIQUE: 7 views including flexion-extension lateral views FINDINGS: There is a plate with screws fusing anteriorly the cervical spine at C4-5. There is moderat e narrowing of C3-4 disc space. There is narrowing of C5-6 and C6-7 disc spaces. Flexion-extension vi ews show no sign of instability. There are no cervical ribs. There is uncovertebral spurring and neur al foraminal impingement bilaterally at C5-6 and C6-7. IMPRESSION: No evidence of instability. Postsurgical changes. No fracture. Spondylosis as above with neural foraminal narrowing in the lower cervical spine. There is progression of neural foraminal narr owing compared to old exam.
== END | disposition home or self-care (01) ==
LOC: RADXRMAIN 12:50
PROVIDERS: ATTEND Neurological Surgery
DX: M48.02 Spinal stenosis, cervical region (principal); Z98.1 Arthrodesis status
CPT/HCPCS: 72052

== ENCOUNTER → 2019-03-11 | Outpatient (CLI) | payer OTHER ==
--- NOTE | 2019-03-12 07:04 | US ---
EXAMINATION TYPE: US carotid duplex BILAT DATE OF EXAM: 03/11/2019 COMPARISON: US CLINICAL HISTORY: H93.8X2 Pounding noise in ear. Pt states hearing her heart beat in left ear EXAM MEASUREMENTS: RIGHT: Peak Systolic Velocity (PSV) cm/sec ----- Right CCA: 81.1 ----- Right ICA: 76.5 ----- Right ECA: 88.8 ICA/CCA ratio: 0.9 RIGHT: End Diastole cm/sec ----- Right CCA: 27.1 ----- Right ICA: 38.1 ----- Right ECA: 24.9 LEFT: Peak Systolic Velocity (PSV) cm/sec ----- Left CCA: 91.2 ----- Left ICA: 67.7 ----- Left ECA: 74.3 ICA/CCA ratio: 0.7 LEFT: End Diastole cm/sec ----- Left CCA: 26.9 ----- Left ICA: 35.4 ----- Left ECA: 19.6 VERTEBRALS (direction of flow): Right Vertebral: Antegrade Left Vertebral: Antegrade Rhythm: Normal No significant stenosis seen IMPRESSION: No evidence for hemodynamically significant stenosis. Criteria for Assigning % of Stenosis / Diameter reduction (Estimation based on the indirect measurements of the internal carotid artery velocities (ICA PSV). 1. Normal (no stenosis)=ICA PSV < 125 cm/s: ratio < 2.0: ICA EDV<40 cm/s. 2. Less than 50% stenosis=ICA PSV < 125 cm/s: ratio < 2.0: ICA EDV<40 cm/s. 3. 50 to 69% stenosis=ICA PSV of 125 to 230 cm/s: ration 2.0 ? 4.0: ICA EDV 40-100 cm/s. 4. Greater than 70% stenosis to near occlusion= ICA PSV > 230 cm/s: ratio > 4.0: ICA EDV > 100 cm/s. 5. Near occlusion= ICA PSV velocities may be low or undetectable: variable ratio and ICA EDV. 6. Total occlusion=unable to detect flow.
== END | disposition home or self-care (01) ==
LOC: RADUSWWP 16:09
PROVIDERS: ATTEND Family Medicine
DX: H93.8X2 Other specified disorders of left ear (principal)
CPT/HCPCS: 93880

== ENCOUNTER → 2019-06-23 | Outpatient (CLI) | payer OTHER ==
--- NOTE | 2019-06-23 23:51 | CONS ---
CONSULTATION REASON FOR CONSULTATION: Sleep apnea/narcolepsy HISTORY OF PRESENT ILLNESS: This is a 43-year-old female patient, claims that she has had a sleep evaluation through us back in 2008. We were unable to find any records on her in our Sleep Center. In any rate, the patient was diagnosed having narcolepsy through a sleep center in [place] back in 2007. At that time, she was given Provigil. After moving back to [place], Provigil was not covered by insurance and this was dropped. She had another evaluation either through our sleep center or through [facility] where she was given a diagnosis of mild obstructive sleep apnea and narcolepsy. She was not given treatment for narcolepsy, however, she was given a CPAP machine. Following that, she went to [place] in 2014 and she had another sleep study where she was given CPAP and she ultimately lost her CPAP machine in [place]. She claims that while on the treatment she was benefitting from CPAP therapy. Note that she has not received any regular treatment for narcolepsy. No sleep paralysis. No hallucinations. No cataplexy. No significant weight gain. She has other comorbidities including fibromyalgia, degenerative disc disease and social anxiety and depression along with COPD and hyperlipidemia. The patient is coming in for further advice regarding her problems. She has excessive snoring and excessive fatigue and tiredness during the day and she admits that she stops breathing. She does grind her teeth occasionally. She sleep walks and she wakes up with dry mouth. She has some degree of anxiety. She is tired and fatigued during the day. She is going to bed between 9:00 pm and midnight and she gets up between 7-9 a.m. in the morning. Take some more than 30 minutes to fall asleep. Lewis[place] Score is at 15 for now. PAST MEDICAL HISTORY: 1. Obstructive sleep apnea with questionable narcolepsy. 2. Fibromyalgia. 3. Degenerative disc disease. 4. Social anxiety. 5. Depression. 6. COPD. 7. Hyperlipidemia. PAST SURGICAL HISTORY: Includes arthroscopic right shoulder surgery. Tubal ligation, and endometriosis with ablation of the uterus and C4-C5 cervical spine fusion. DRUG ALLERGIES: TERBINAFINE AND PENICILLIN AND BACTRIM AND TIZANIDINE AND SHE IS ALSO ALLERGIC TO SEASONAL AGENTS INCLUDING MOLD. ALLERGIC TO BEES. OUTPATIENT MEDICATION: Includes Prozac 40 mg p.o. daily, Prilosec 40 mg p.o. q. day, Ventolin on an as needed basis, Incruse 62.5 mcg once a day, Q-nadiya 80 mcg 2 puffs twice a day, butalbital p.r.n., BuSpar 15 mg twice a day. Singulair 10 mg p.o. daily, vitamin D 5000 units daily, Lipitor 40 a day, Singulair 10 daily, pregabalin 150 mg twice a day. SOCIAL HISTORY: She is a smoker. No history of alcohol. No history of IV drugs. FAMILY HISTORY: Noncontributory to current presentation. Negative for sleep apnea. REVIEW OF SYSTEMS: Fourteen-point review of system was done. Positive findings are mentioned above in history of present illness. PHYSICAL EXAMINATION: BP is 129/83, pulse 88, respirations 14, temperature 98.4, saturation 96% on room air. Lewis[place] score of 15. Neck size is 14 and BMI 25.4, saturation 96% on room air. GENERAL APPEARANCE: Calm, comfortable. Head is atraumatic, normocephalic. NECK: Supple. There is no JVD. No goiter or neck masses. Mallampati class 2. LUNGS: Clear to auscultation. HEART: Heart sounds are regular rate and rhythm. Normal S1, S2. No murmurs. ABDOMEN: Soft, nontender. No organomegaly. EXTREMITIES: No edema. No edema, cyanosis or clubbing. NEUROLOGIC: Awake and alert. There are no focal neurological deficits. IMPRESSION: 1. Obstructive sleep apnea. Patient is presenting for reevaluation. No official documentation on previous diagnosis available from previous sleep evaluation 2007, 2008 or 2014. Note that each study was done in a different state and the patient does not have any CPAP unit at this point in time. 2. Chronic hypersomnia, Lewis[place] score of 14. 3. Questionable diagnosis of narcolepsy although this is doubtful based on clinical presentation. 4. Fibromyalgia. 5. Degenerative disc disease. 6. Social anxiety. 7. Depression. 8. Chronic obstructive pulmonary disease. 9. Hyperlipidemia. PLAN: 1. Proceed with a PSG and second day MSLT. 2. CPAP titration if needed. 3. Implement good sleep hygiene measures. 4. Prozac needs to be stopped around 2 weeks before the MSLT. 5. medication be continued. 6. The patient will see me back in followup to discuss results and treatment plan. We will continue to follow. CALI / ROGERN: [id number] /
== END | disposition home or self-care (01) ==
LOC: SLEEP 15:29
PROVIDERS: ATTEND Internal Medicine Critical Care Medicine
DX: G47.33 Obstructive sleep apnea (adult) (pediatric) (principal); M79.7 Fibromyalgia; F40.11 Social phobia, generalized; F32.9 Major depressive disorder, single episode, unspecified; J44.9 Chronic obstructive pulmonary disease, unspecified; E78.5 Hyperlipidemia, unspecified; F17.200 Nicotine dependence, unspecified, uncomplicated; Z79.899 Other long term (current) drug therapy; Z88.0 Allergy status to penicillin; Z91.030 Bee allergy status; Z88.2 Allergy status to sulfonamides; Z88.8 Allergy status to other drugs, medicaments and biological substances; Z91.048 Other nonmedicinal substance allergy status
CPT/HCPCS: 99211

== ENCOUNTER → 2020-02-18 | Outpatient (CLI) | payer OTHER ==
--- NOTE | 2020-02-19 09:42 | MM ---
Reason for exam: additional evaluation requested from abnormal screening. Last mammogram was performed 1 month ago. History: Family history of breast cancer in maternal aunt and breast cancer in maternal cousin. Physical Findings: Nurse did not find any significant physical abnormalities on exam. MG Work Up Mamm w CAD LT Spot compression CC, LM, and CCRM view(s) were taken of the left breast. Prior study comparison: January 19, 2020, bilateral MG screening mammo w CAD. December 01, 2018, bilateral MG screening mammo w CAD. The breast tissue is heterogeneously dense. This may lower the sensitivity of mammography. Previous mammotome biopsy in the right breast. Asymmetry 3.3cm from nipple inferior left breast. These results were verbally communicated with the patient and result sheet given to the patient on 02/18/20. ASSESSMENT: Incomplete: need additional imaging evaluation, BI-RAD 0 RECOMMENDATION: Ultrasound of the left breast.
--- NOTE | 2020-02-19 09:44 | USB ---
Reason for exam: additional evaluation requested from abnormal screening. History: Family history of breast cancer in maternal aunt and breast cancer in maternal cousin. US Breast Workup Limited LT Left limited breast ultrasound including focal area of concern, retroareolar and axilla demonstrates a 4 x 2 x 4mm lesion too small to characterize at 6 o'clock and a 7 x 3 x 4mm mixed lesion at 7 o'clock. These results were verbally communicated with the patient and result sheet given to the patient on 02/15/20. ASSESSMENT: Suspicious, BI-RAD 4 RECOMMENDATION: Ultrasound core biopsy of the left breast. Called Dr. Hernández's office with mammographic findings and has scheduled an appointment for the patient for 02/25/20 at 12:[address] Guerrero. Biopsy scheduled for 02/26/20 at 10:30. PRELIMINARY REPORT CALLED AND FAXED TO DR. GUERRERO ON 02/19/20.
== END | disposition home or self-care (01) ==
LOC: RADMAMWWP 13:22
PROVIDERS: ATTEND Nurse Practitioner Family
DX: R92.8 Other abnormal and inconclusive findings on diagnostic imaging of breast (principal)
CPT/HCPCS: 77065